=== PATIENT | female | born 1970 | race Caucasian/White ===

== ENCOUNTER 2017-05-01 17:10 | Emergency (ER) | payer MEDICAID ==
[~2017-05-01] VITALS: Ht 165.1 cm; Wt 90.0 kg
[2017-05-01 17:14] VITALS: Ht 165.1 cm; Wt 90.0 kg
[2017-05-01] MEDS ORDERED: LIDOCAINE/MYLANTA 40 ML BTL PO STA (18:26)
[2017-05-01] MEDS ORDERED: OMEP40CA6 PO (19:07)
--- NOTE | 2017-05-01 19:09 | RADRPT ---
PROCEDURE: Chest x-ray CLINICAL INDICATION: Abdominal pain TECHNIQUE: Chest single view COMPARISON: None FINDINGS: The heart is normal in size. The pulmonary vessels are normal in caliber. The lungs are clear. Th e costophrenic angles are sharp. The visualized bony thorax is unremarkable. IMPRESSION: No acute cardiopulmonary disease. RPTAT: HH .Ace Fall MD, MD Date Time Electronically viewed and signed by .Ace Fall MD, on 05/01/2017 19:08 .W/
[2017-05-01 19:11] LABS: BASOPHILS % 0.5 % (0.0-2.0); EOSINOPHILS # 0.1 10^3/ul (0.0-0.5); EOSINOPHILS % 0.6 % (0.0-7.0); HEMATOCRIT 37.4 % (37.0-47.0); HEMOGLOBIN 12.9 g/dl (12.0-16.0); LYMPHOCYTES # 3.3 10^3/ul (0.8-2.9); LYMPHOCYTES % 41.5 % (15.0-51.0); MEAN CORPUSCULAR HEMOGLOBIN 28.8 pg (29.0-33.0); MEAN CORPUSCULAR HGB CONC 34.5 g/dl (32.0-37.0); MEAN CORPUSCULAR VOLUME 83.5 fl (82.0-101.0); MEAN PLATELET VOLUME 10.3 fl (7.4-10.4); MONOCYTE # 0.5 10^3/ul (0.3-0.9); NEUTROPHILS % 50.9 % (39.0-77.0); PLATELET COUNT 326 10^3/UL (140-415); RED BLOOD COUNT 4.48 10^6/ul (4.20-5.40); RED CELL DISTRIBUTION WIDTH 12.5 % (11.5-14.5)
[2017-05-01 19:17] LABS: ANION GAP 20 (8-16); BLOOD UREA NITROGEN 15 mg/dl (7-20); CALCIUM 9.8 mg/dl (8.4-10.2); CARBON DIOXIDE 26 mmol/L (21-31); CHLORIDE 101 mmol/L (97-110); CREATININE 0.78 mg/dl (0.44-1.00); GLUCOSE 110 mg/dl (70-220); SODIUM 143 mmol/L (135-144)
[2017-05-01 19:31] LABS: TROPONIN-I < 0.012 ng/ml (0.00-0.12)
[2017-05-01 20:27] VITALS: BP 139/92; PULSE 74; RESP 18; TEMP 98.1
--- NOTE | 2017-05-01 20:41 | ERD ---
ER Documentation Chief Complaint Date/Time DATE: 05/01/17 TIME: 20:35 Chief Complaint CHEST PAIN RADIATING TO BACK X2 WEEKS HPI 46-year-old female with a history of recurrent breast cancer now in remission on oral chemotherapy presenting to the ER with substernal chest discomfort for the past 2-3 weeks. The pain occasionally radiates to her back. She denies any associated diaphoresis, dizziness, fever, chills, shortness of breath, cough , nausea or vomiting. The discomfort is mild, persistent, not worsened or improved by anything specifically. She has not seen her primary care doctor about this. She denies history of blood clot.Of note, the patient states that 2 years ago after her chemotherapy she had some esophagitis as a side effect. She feels that this may be related. ROS All systems reviewed and are negative except as per history of present illness. Medications Home Meds Active Scripts Omeprazole* (Omeprazole*) 40 Mg Capsule., 40 MG PO DAILY, #15 CAP Prov:JUAN GOLD MD 05/01/17 Allergies Allergies: Coded Allergies: pseudoephedrine (Verified Allergy, Unknown, 04/12/15) Uncoded Allergies: NASAL DECONGESTANTS (Allergy, Unknown, SWELLING OF THE THROAT, 03/08/15) PMhx/Soc History of Surgery: Yes (RIGHT BREAST LUMPECTOMY, LT BREAST LUMPECTOMY ) Anesthesia Reaction: No Hx Neurological Disorder: No Hx Respiratory Disorders: No Hx Cardiac Disorders: Yes (HTN ) Hx Psychiatric Problems: No Hx Miscellaneous Medical Probl: Yes (BREAST CA) Hx Alcohol Use: No Hx Substance Use: No Hx Tobacco Use: No Smoking Status: Never smoker FmHx Family History: No coronary disease, No diabetes Physical Exam Vitals Vital Signs Date Time Temp Pulse Resp B/P Pulse Ox O2 Delivery O2 Flow Rate FiO2 05/01/17 20:27 98.1 74 18 139/92 100 Room Air 05/01/17 17:14 98.1 97 18 172/96 100 Physical Exam Const: Well-appearing, pleasant, nontoxic, no distress Head: Atraumatic Eyes: Normal Conjunctiva ENT: Normal External Ears, Nose and Mouth. Neck: Full range of motion..~ No meningismus.No JVD Resp: Clear to auscultation bilaterally Cardio: Regular rate and rhythm, no murmurs. 2+ distal pulses Abd: Soft, non tender, non distended. Normal bowel sounds Skin: No petechiae or rashes Back: No midline or flank tenderness Ext: No cyanosis, or edema. No calf swelling or tenderness. Negative Homans sign. Neur: Awake and alert Psych: Normal Mood and Affect Result Diagram: 05/01/17175705/01/171757 Results 24 hrs Laboratory Tests Test 05/01/17 17:58 White Blood Count 8.010^3/ul Red Blood Count 4.4810^6/ul Hemoglobin 12.9g/dl Hematocrit 37.4% Mean Corpuscular Volume 83.5fl Mean Corpuscular Hemoglobin 28.8pg Mean Corpuscular Hemoglobin Concent 34.5g/dl Red Cell Distribution Width 12.5% Platelet Count 87574^3/UL Mean Platelet Volume 10.3fl Neutrophils % 50.9% Lymphocytes % 41.5% Monocytes % 6.0% Eosinophils % 0.6% Basophils % 0.5% Nucleated Red Blood Cells % 0.0/100WBC Neutrophils # (Manual) 4.110^3/ul Lymphocytes # 3.310^3/ul Monocytes # 0.510^3/ul Eosinophils # 0.110^3/ul Basophils # 0.010^3/ul Nucleated Red Blood Cells # 0.010^3/ul Sodium Level 143mmol/L Potassium Level 4.0mmol/L Chloride Level 101mmol/L Carbon Dioxide Level 26mmol/L Anion Gap 20 Blood Urea Nitrogen 15mg/dl Creatinine 0.78mg/dl Glucose Level 110mg/dl Calcium Level 9.8mg/dl Troponin I < 0.012ng/ml Current Medications Medications (Trade) Dose Ordered Sig/Nay Route PRN Reason Start Time Stop Time Status Last Admin Dose Admin Miscellaneous Medication (Gi Cocktail (2)) 40 ml ONCE STAT PO 05/01/17 18:26 05/01/17 18:28 DC 05/01/17 18:48 Procedures/MDM EMERGENT LABS AND DIAGNOSTIC STUDIES: Lab Results above were reviewed and interpreted by me. CBC and BMP show no significant abnormalities Troponin within normal limits 12-lead EKG was interpreted by Nery Gold MD: Normal Sinus Rhythm Normal axis Normal intervals No acute ST or T wave changes suggestive of acute ischemia or STEMI. Radiology Results as interpreted by Radiology below were reviewed by Cabrera Gold MD: Chest x-ray shows no significant abnormalities Initial Nursing notes reviewed. Previous Medical Records requested via the Electronic Health Record. EMERGENCY DEPARTMENT COURSE / MEDICAL DECISION MAKING: Patient is presenting with 2 weeks of chest discomfort. Her vitals were unremarkable when she arrived. She has no evidence of respiratory failure. I have a low suspicion for acute coronary syndrome or aortic dissection. I discussed with the patient that she is at higher risk for a pulmonary embolism , however her symptoms are not classic of this diagnosis. Patient has had multiple CT scans of her chest in the past. The risks and benefits of a CTPA were discussed. After shared decision making, the patient decided to forego the CTPA at this time. She would like to follow-up with GI first to rule out esophagitis or other GI etiology. Return precautions were discussed. I feel comfortable discharging the patient home at this time as my suspicion for pulmonary embolism is pretty low and the patient is hemodynamically stable. She was encouraged to return for any worsening symptoms Patient's blood pressure was elevated (>120/80) but appears stable without evidence of hypertensive emergency or urgency. The patient was counseled about the risks of hypertension and urged to pursue outpatient monitoring and therapy within a week with their primary care physician. Departure Diagnosis: Primary Impression: Chest discomfort Condition: Stable Patient Instructions: Chest Pain, Uncertain Cause Additional Instructions: Return to the ER for any worsening symptoms. Make an appointment with a GI doctor for possible endoscopy. Again, we cannot rule out pulmonary embolism without doing a CT scan. So if your symptoms are worsening, return to the ER immediately. JUAN GOLD MD May 01, 2017 20:41
== END 2017-05-01 20:30 | disposition home or self-care (01) ==
LOC: E/R 17:10
DX: R07.89 Other chest pain (principal); I10 Essential (primary) hypertension; C50.919 Malignant neoplasm of unspecified site of unspecified female breast
CPT/HCPCS: 36415; 71010; 80048; 84484; 85025; 93005; Z7502; Z7610

== ENCOUNTER 2018-07-31 23:22 | Emergency (ER) | END 2018-08-01 01:18 | disposition home or self-care (01) ==

== ENCOUNTER 2019-03-22 18:29 | Emergency (ER) | payer MEDICAID ==
[~2019-03-22] VITALS: Ht 160 cm; Wt 84.5 kg
[~2019-03-22 18:29] MED LIST: BEN25 PO; MED4DP PO; OMEP40CA6 PO
[2019-03-22 18:48] VITALS: Ht 160 cm; Wt 84.5 kg
--- NOTE | 2019-03-22 21:08 | ERD ---
ER Documentation Chief Complaint Chief Complaint heavy breathing x 2 days HPI Is a 48-year-old female presents complaining that she feels like she is had difficulty taking a deep breath for the past 2 days. She states that this is h appened before but it is more consistent this time. She states that usually attributed to anxiety. She has no chest pain or palpitations. No fever cough or recent illness. ROS All systems reviewed and are negative except as per history of present illness. Medications Home Meds Active Scripts Diphenhydramine Hcl* (Benadryl*) 25 Mg Cap, 25 MG PO Q6, #30 CAP Prov:BROOKE FARLEY PA-C 08/01/18 Methylprednisolone* (Medrol* DOSE PACK) 4 Mg/Dose-Pack Tab.ds.pk, 4 MG PO . DIRECTED, #1 PACKET Prov:BROOKE FARLEY PA-C 08/01/18 Omeprazole* (Omeprazole*) 40 Mg Capsule.dr, 40 MG PO DAILY, #15 CAP Prov:JUAN HOOKS MD 05/01/17 Allergies Allergies: Coded Allergies: vancomycin (Verified Allergy, Intermediate, 03/22/19) pseudoephedrine (Verified Allergy, Unknown, 04/12/15) Uncoded Allergies: NASAL DECONGESTANTS (Allergy, Unknown, SWELLING OF THE THROAT, 03/08/15) PMhx/Soc History of Surgery: Yes (RIGHT BREAST LUMPECTOMY, LT BREAST LUMPECTOMY, HYSTERECTOMY ) Anesthesia Reaction: No Hx Neurological Disorder: No Hx Respiratory Disorders: No Hx Cardiac Disorders: Yes (HTN ) Hx Psychiatric Problems: No Hx Miscellaneous Medical Probl: Yes (BREAST CA) Hx Alcohol Use: No Hx Substance Use: No Hx Tobacco Use: No Smoking Status: Never smoker FmHx Family History: No diabetes Physical Exam Vitals Vital Signs Date Temp Pulse Resp B/P (MAP) Pulse Ox O2 O2 Flow FiO2 Time Delivery Rate 03/22/19 97.6 82 20 154/90 99 18:48 (111) Physical Exam INITIAL VITAL SIGNS: Reviewed by me GENERAL: Awake, alert and oriented x 4, well appearing, nontoxic, speaking in fu ll sentences. No acute distress HEAD: Atraumatic NECK: Supple. No masses. Full range of motion. No meningismus. No midline tenderness. RESPIRATORY: Clear to auscultation bilaterally. Symmetric chest wall rise. No wheezing or rales. No accessory muscle use. CV: Regular rate and rhythm. No murmurs, rubs, or gallops. Result Diagram: 03/22/19193403/22/191934 Results 24 hrs Laboratory Tests Test 03/22/19 19:35 White Blood Count 9.1 10^3/ul Red Blood Count 4.48 10^6/ul Hemoglobin 12.5 g/dl Hematocrit 38.0 % Mean Corpuscular Volume 84.8 fl Mean Corpuscular Hemoglobin 27.9 pg Mean Corpuscular Hemoglobin Concent 32.9 g/dl Red Cell Distribution Width 12.4 % Platelet Count 319 10^3/UL Mean Platelet Volume 10.2 fl Immature Granulocytes % 0.300 % Neutrophils % 48.3 % Lymphocytes % 43.9 % Monocytes % 5.9 % Eosinophils % 0.9 % Basophils % 0.7 % Nucleated Red Blood Cells % 0.0 /100WBC Immature Granulocytes # 0.030 10^3/ul Neutrophils # 4.4 10^3/ul Lymphocytes # 4.0 10^3/ul Monocytes # 0.5 10^3/ul Eosinophils # 0.1 10^3/ul Basophils # 0.1 10^3/ul Nucleated Red Blood Cells # 0.0 10^3/ul Sodium Level 141 mmol/L Potassium Level 4.3 mmol/L Chloride Level 105 mmol/L Carbon Dioxide Level 26 mmol/L Anion Gap 10 Blood Urea Nitrogen 16 mg/dl Creatinine 0.62 mg/dl Est Glomerular Filtrat Rate mL/min > 60 mL/min Glucose Level 99 mg/dl Calcium Level 10.3 mg/dl Troponin I < 0.012 ng/ml Procedures/MDM The differential diagnosis includes but is not limited to asthma, COPD, pneumonia, pulmonary embolus, pleural effusion, congestive heart failure, and others. EKG is normal no evidence of ST elevation or acute ischemic changes. Labs including troponin are negative. She has no cardiac past medical history and given this is been going on for 2 days and she has had similar symptoms in the past I feel comfortable sending her home. She was given copies of all of her labs so she can follow-up with her primary care. Patient counseled regarding my diagnostic impression and care plan. Prior to discharge all questions answered. Pt agrees with treatment plan and understands strict return precautions. Pt is instructed to follow up with primary care provider within 24- 48 hours. Precautionary instructions provided including instructions to return to the ER if not improving or for any worsening or changing symptoms or c oncerns. Departure Diagnosis: Primary Impression: Shortness of breath Condition: Stable Patient Instructions: Coping with Shortness of Breath: Controlling Stress Additional Instructions: Call your primary care doctor TOMORROW for an appointment during the next 1-2 days.See the doctor sooner or return here if your condition worsens before your appointment time. CLAU AMARAL PA-C Mar 22, 2019 21:08
[2019-03-22 21:26] VITALS: BP 148/81; PULSE 57; RESP 17
== END 2019-03-22 21:26 | disposition home or self-care (01) ==
LOC: FTE 18:29
DX: R06.02 Shortness of breath (principal); I10 Essential (primary) hypertension; Z85.3 Personal history of malignant neoplasm of breast
CPT/HCPCS: 36415; 71045; 80048; 84484; 85025; Z7502

== ENCOUNTER 2019-04-20 16:20 | Emergency (ER) | payer MEDICAID ==
[~2019-04-20] VITALS: Ht 162.6 cm; Wt 85.1 kg
[~2019-04-20 16:20] MED LIST changes: +MAG355OR15 PO; +ONDA4TAB14 PO
--- OUTSIDE RECORDS SUMMARY | 2019-04-20 16:23 | XMS REPORT | Encounter Summary ---
Demographics -[id number] Affiliation lan Author ress Care Team Providers counter Details Gwafjbl2Ug re escriptionVerd DdhnCeieoqs0m ana4d Rita aguilar, JOSÉ MIGUEL [address] [place] [address] [phone] BLOCKLAYER ry Hfycnaf8Ml cks/Day 0 Bd Hxevqxo8Ib Travel CobLnqvsoj3d ncounter Plan of Treatment Voavguc0Qd are escriptionVerd IqvjOojvbcu9u ana4d Gildardo fitch MD [address] [place] [phone] [phone] Surgery Arelis Orantes MD [address] [facility] [place] [address] Diagnoses Not on filedocumented in this encounter
--- OUTSIDE RECORDS SUMMARY | 2019-04-20 16:23 | XMS REPORT | Clinical Summary ---
Demographics -[id number] Affiliation lan Author ress Care Team Providers lergies Ppvilca9Bg actions ne ad and anxiety Verdana4 Verdana Bd na4d a4d nits capsule TAKE 1 tablet (FEMARA) 2.5 MG y from request for surgery [id number] a) teric states with abnormal finding f right breast in female, , IA: Positive, HER2: Negative) - Signed by brynn Evans 09/13/2018 Encounters Qnetmdq7UxMD Serafin Edwards, Iris, RN ry Dx); Malignant neoplasm of upper-outer quadrant of left breast in female, estrogen receptor positive (CMS/HCC); Age-related osteoporosis with current pathological fracture with delayed healing, subsequent encounter 03/11/2019 Hospital Infusion Therapy Encounter Arelis Leon MD Barragan, 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, 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 Malignant neoplasm of central portion of right breast in female, estrogen receptor positive (CMS/HCC); Malignant neoplasm of upper-outer quadrant of left breast in female, estrogen receptor positive (CMS/HCC) 03/11/2019 Office Visit Oncology Aiyana Greene NP Med Refill 03/02/2019 Refill Oncology Sunny Jefferson MD Nontoxic uninodular goiter (Primary Dx); Osteoporosis, unspecified osteoporosis type, unspecified pathological fracture presence; Pre-diabetes 02/26/2019 Office Visit Endocrinology 02/26/2019 Travel from Last 3 Months Family History Kojmdeb8Fd cks/Day 0 Bd Tchceov3Kr Travel LzkIsbavvk4w l Signs Jifcfky6Ot dana4d zuccUfcagsa2r PM PDT PM PDT M PDT PM PDT PM PDT n oz) PM PDT AM PST AM PST Vlwisuw6On are escriptionVerd XamnMxzggtg9s ana4d Gildardo fitch MD [address] [place] [phone] Surgery Arelis Orantes MD [address] [place] [address] [address] [phone] Qnnyzmp8Bu mmentsVerdana4 d procedure are in the results section. neoplasm of portion of right positive (CMS/HCC) procedure are in the results section. neoplasm of portion of right positive (CMS/HCC) procedure are in the results section. neoplasm of portion of right positive (CMS/HCC) procedure are in the results section. IAL WITH neoplasm of portion of right positive (CMS/HCC) from Last 3 Months Results * Automated Differential (03/11/2019 1:24 PM PDT) OGY OGY OGY OGY OGY - 3.1 K/uL B AB AB OGY rganization -2188 [address] Performed At [facility] LOG[facility] LOGY RH PATHOLOGY RH PATHOLOGY LOGY LOGY LOGY LOGY LOGY rganization -218 [address]istina nature OGY [facility] Level, g/dL PATHOLOGY [facility] Level, mg/dL PATHOLOGY [facility] mg/dL PATHOLOGY RH PATHOLOGY PATHOLOGY PATHOLOGY mmol/L PATHOLOGY [facility] mmol/L PATHOLOGY [facility] Dioxide mmol/L PATHOLOGY PATHOLOGY mg/dL PATHOLOGY the MDRD study f age, women, ions, or persons with utritional status. M mL/min/1.73 sq PATHOLOGY the MDRD study f age, women, ions, or persons with utritional status. M Gap, [facility] PATHOLOGY [facility] PATHOLOGY rganization -218 [address] Verdana 4Bd 4d iber Effective ID [id number] 08/04/2017- [phone] [phone] [id number] Address Malika pope [facility] [id number]
--- OUTSIDE RECORDS SUMMARY | 2019-04-20 16:23 | XMS REPORT | Encounter Summary ---
Demographics -[id number] Affiliation lan Author ress Care Team Providers counter Details Edawawi0Pi te Social History Zwgbupt1Ki cks/Day 0 Bd Ivyhsgh1Lr Travel YpgCrhzpto3p ncounter Plan of Treatment Bmffajf2Dq are escriptionVerd AurdSdjpjjr2r ana4d Gildardo fitch MD [address] [place] [phone] Surgery Arelis Orantes MD [address] [place] [phone] Diagnoses Not on filedocumented in this encounter
--- OUTSIDE RECORDS SUMMARY | 2019-04-20 16:23 | XMS REPORT | Encounter Summary ---
Demographics -[id number] Affiliation lan Author ress Care Team Providers ason for Visit * Exccozr2Qa re scriptionVerdan DwljEtuqzfw1n a4d [address] PARAPROFESSIONAL/PA/RN [place] [address] [phone] Social History Imwnwdg3Pe cks/Day 0 Bd Hppnqnn7Ds Travel MukZgcntda7w ncounter Plan of Treatment Rfstsym0Uf are escriptionVerd JksnNyuqrgr0a ana4d Gildardo fitch MD [address] [place] [address] [phone] Surgery Arelis Orantes MD [address] [place] [address] [phone] Diagnoses Not on filedocumented in this encounter
--- OUTSIDE RECORDS SUMMARY | 2019-04-20 16:23 | XMS REPORT | Encounter Summary ---
Demographics -[phone] Affiliation lan Author ress Care Team Providers ason for Visit * Nlejuxc4Fk re scriptionVerdan DmgzOuvxdpi7o a4d [address] [facility] [address] [place] [address] 1055 Social History Hzfotak5Qz cks/Day 0 Bd Ollrhxh9Am Travel OecCdprjww5x ncounter Plan of Treatment Efjuksu6Jq are escriptionVerd PmupVvhndoa7s ana4d Gildardo fitch MD [address] [place] [phone] [phone] Surgery Arelis Orantes MD [address] [place] [address] Diagnoses Not on filedocumented in this encounter
--- OUTSIDE RECORDS SUMMARY | 2019-04-20 16:23 | XMS REPORT | Encounter Summary ---
Demographics -[phone] Affiliation lan Author ress Care Team Providers ason for Referral * Follow Up (Routine) Axtaubj3Xr Referred By Referred To Jaime ContactVermelina a4d a4d MD Becky [address] [place] [address] Road Div of Neurology [facility] [place] [address] s dxlxox2Iq are escriptionVerd YnkbTzkukcs8z ana4d Pippa casiano areola in [address] Div of breasts in Neurology [place] female, te, [place] estrogen [phone] (Fax) ([facility]) (Primary Dx); Abnormal involuntary movement tory Nauircl0Ew cks/Day 0 Bd Imnuskg4Lr Travel TvjGcznxvu2z ncounter Last Filed Vital Signs Uftmpwr0By dana4d lvqlBssssej3s AM PST AM PST M PST AM PST AM PST n 10.8 oz) AM PST AM PST AM PST CSN: [id number] Age: 47 y.o. (1970) Patient Name: Kyle Posey Gender: female Encounter Department: [facility] [address] [place] [phone] Progress Note Reason for Visit Involuntary movements History of Present Illness Kyle Posey is a 47 y.o. female with history of bilateral breast cancer, st age IA, ER/IA positive, on adjuvant letrozole since 2014. She was seen for eval uation of involuntaryl head twitches. Head movements are side-to side, lasts sec onds and are triggered by certain physical actions that usually require some eff ort or concentration. They never occur at rest. Her maternal great aunt had esse ntial tremor involving only her head. There is no family history of any other mo vement disorders. Patient relates today, her mother noticed them since her chil dhood. My impression was essential type tremor as opposed to tick disorder. Sin ce symptoms were mild, no treatments were recommended . She had a normal miller MRI in an outside facility. INTERVAL HISTORY: There is no symptom progression and no development of new symptoms . She continu es to do well. Diagnosis and Problem List Diagnosis/Cancer Stagin. Abnormal involuntary movement Patient Active Problem List Diagnosis Malignant neoplasm of central portion of right breast in female, estrogen re ceptor positive (CMS/HCC) Malignant neoplasm of upper-outer quadrant of left breast in female, estroge n receptor positive (CMS/HCC) Symptomatic menopausal or female climacteric states Vaginal atrophy Encounter for gynecological examination with abnormal finding Lower abdominal pain BRBPR (bright red blood per rectum) Bilateral groin pain Use of letrozole (Femara) Osteoporosis Pre-diabetes Hypovitaminosis D Proctocele Stress incontinence in female Nontoxic uninodular goiter Lymphedema of upper extremity Use of letrozole (Femara) Medical History Past Medical History: Past Medical History: Diagnosis Date Cancer (CMS/HCC) Costochondritis Endometrioma Endometriosis Hypovitaminosis D Multinodular goiter (nontoxic) Osteopenia Past Surgical History: Past Surgical History: Procedure Laterality Date BREAST LUMPECTOMY Left 2011 BREAST LUMPECTOMY Right 2014 ESOPHAGOGASTRODUODENOSCOPY IA COLONOSCOPY FLX DX W/COLLJ SPEC WHEN PFRMD N/A 01/15/2018 Procedure: COLONOSCOPY; Surgeon: Imani Sears MD; Location: [facility] OR; Servi ce: Gastroenterology TOTAL ABDOMINAL HYSTERECTOMY W/ BILATERAL SALPINGOOPHORECTOMY Family History: Family History Problem Relation Age of Onset No Known Problems Mother No Known Problems Father Social History: Social History Social History Marital status: Spouse name: N/A Number of children: N/A Years of education: N/A Occupational History Not on file. Social History Main Topics Smoking status: Never Smoker Smokeless tobacco: Never Used Alcohol use No Drug use: No Sexual activity: Yes Partners: Male Other Topics Concern Not on file Social History Narrative No narrative on file Medications Current Medications: Current Outpatient Prescriptions: Cholecalciferol (D3-1000) 1000 units capsule, Take 2,000 Units by mouth jo ann ly. , Disp: , Rfl: letrozole (FEMARA) 2.5 MG tablet, Take 1 tablet (2.5 mg total) by mouth jo ann ly. Take with or without food., Disp: 90 tablet, Rfl: 3 omeprazole (PriLOSEC) DR capsule, Take 1 capsule (20 mg total) by mouth gilmer morning. DO NOT CRUSH OR CHEW., Disp: 30 capsule, Rfl: 11 Allergies/Intolerances Docetaxel; Sudafed [pseudoephedrine]; and Vancomycin Review of Systems Review of Systems Pertinent positives as above. The reminder of neurologic 12-point review of systems is negative. Physical Exam Vitals: Vitals: 09/07/18 0931 BP: 134/88 Pulse: 85 Resp: 18 Temp: 37.1 C (98.8 F) TempSrc: Oral SpO2: 96% Weight: 94.2 kg (207 lb 10.8 oz) Physical Exam General: Well developed woman without distress. HEENT: Normocephalic, anicteric sclera, mucous membranes are moist. Neck: Supple without bruits. Chest: Normal respirations without effort Cardiovascular: Regular rate and rhythm Extremities: Well perfused without discoloration or edema. NEUROLOGIC EXAM: Mental status: Alert and oriented x4. There is no dysnomia or dyspraxia. Speech is fluent and comprehension is intact. Mood is euthymic. CN II-XII : Pupils are about 3 mm, round and reactive to light. Extraocular move ments are conjugate. Visual jha are full to confrontation. Face is symmetric, hearing is intact to casual conversation, tongue and uvula are in midline, ther e is no dysarthria and no weakness of shoulder shrug. Motor: Full strength throughout with normal tone and bulk. DTR: 2/4 throughout without pathologic reflexes Coordination: no dysmetria, no abnormal movements are observed, there is no rest ing or action type hand tremor. I was able to elicit and observe head oscilati on during exam. Sensory exam: Intact with exception of mild gradient vibratory loss Gait: Negative Romberg, normal narrow based gait, normal tandem gait Laboratory Results Review: I reviewed pertinent labs. Serum workup is negative including DENNISE, RF, Copper, Ceruloplasmin. She doesn't h ave thyroid dysfunction. Medical Imaging Review I have reviewed all pertinent imaging results. Brain MRI was reportedly normal. Assessment and Plan This is a 47-year-old woman with stage I bilateral breast cancer and family hist ory of essential tremor, who presents for evaluation of involuntary head oscillations. They are of action type and are triggered by certain motions/ phy sical activities requiring effort/concentration. I was able to elicit and observ e one during exam. This is a form fruste of essential tremor involving head. It may slowly progres s over time. It is doesn't represent myoclonic jerks, tic disorder or dystonic tremor. Plan: 1. No treatment is indicated at this stage 2. Limitation of caffeine 3. Thyroid function Is normal along with other pertinent blood workup 4. Follow up as needed. 5. In case of progression, propranolol would be the agent of choice. 6. She is under care of [facility] for breast cancer, which remians in remission Electronic Signature: Becky Powers MD 09/07/2018 9:23 PM Over 25 minutes were spent in this encounter with more than 50% of time devoted to counseling, answering multiple questions and coordinating care. documented in this encounter Plan of Treatment Fnbosqb8Oo are escriptionVerd TsxjNfloztn8x ana4d Gildardo fitch MD [address] [place] [phone] Surgery Arelis Orantes MD [address] [facility] [place] [address] [phone] Diagnoses CC) -
--- OUTSIDE RECORDS SUMMARY | 2019-04-20 16:23 | XMS REPORT | Encounter Summary ---
Demographics -[id number] Affiliation lan Author ress Care Team Providers counter Details [id number] re scriptionVerdan [id number] a4d Aure HAND PATCHER Xvckirp7Hm cks/Day 0 Bd Lhsmojr0By Travel HojVxaplqo3p ncounter Plan of Treatment Epgiyan0Op are escriptionVerd [id number] ana4d Gildardo fitch MD [address] [place] [address] [id number] Surgery Arelis Orantes MD [address] [place] [address] [address] [phone] Diagnoses Not on filedocumented in this encounter
[2019-04-20 16:25] VITALS: BP 147/67; PULSE 91; RESP 18; Ht 162.6 cm; Wt 85.1 kg
--- NOTE | 2019-04-20 17:44 | ERD ---
ER Documentation Chief Complaint Chief Complaint c/o nausea, lack of appetite, abdominal cramps and dark urine x1 day HPI This is a 48-year-old female patient presents emergency room with complaint of 2 days of increasing episodes of nausea, abdominal bloating, and dark urine. Patient also states she has been having chills however has not measured a temperature. Denies dysuria, denies hematuria, + left-sided CVT. BM today hunter ent states was "normal" denies melena or hematochezia. Intermittent nausea, no vomiting. Patient states she was on Cipro 2 weeks ago for UTI and also had transfusion of Zometa to prevent osteoporosis 2 weeks ago. Patient has history of breast cancer, last chemo 2014. ROS All systems reviewed and are negative except as per history of present illness. Medications Home Meds Active Scripts Mag Hydrox/Al Hydrox/Simeth (Maalox Plus X-Strength Susp) 355 Ml Oral.susp, 10 ML PO BID PRN for INTESTINAL SPASMS/CRAMPING for 5 Days, #1 BOTTLE Prov:TERESA RYAN NP 04/20/19 Ondansetron (Ondansetron Odt) 4 Mg Tab.rapdis, 4 MG PO Q6H PRN for NAUSEA AND/OR VOMITING, #10 TAB Prov:TERESA RYAN NP 04/20/19 Diphenhydramine Hcl* (Benadryl*) 25 Mg Cap, 25 MG PO Q6, #30 CAP Prov:BROOKE FARLEY PA-C 08/01/18 Methylprednisolone* (Medrol* DOSE PACK) 4 Mg/Dose-Pack Tab.ds.pk, 4 MG PO . DIRECTED, #1 PACKET Prov:BROOKE FARLEY PA-C 08/01/18 Omeprazole* (Omeprazole*) 40 Mg Capsule.dr, 40 MG PO DAILY, #15 CAP Prov:JUAN HOOKS MD 05/01/17 Allergies Allergies: Coded Allergies: vancomycin (Verified Allergy, Intermediate, 03/22/19) pseudoephedrine (Verified Allergy, Unknown, 04/12/15) Uncoded Allergies: NASAL DECONGESTANTS (Allergy, Unknown, SWELLING OF THE THROAT, 03/08/15) PMhx/Soc History of Surgery: Yes (RIGHT BREAST LUMPECTOMY, LT BREAST LUMPECTOMY, HYSTERECTOMY ) Anesthesia Reaction: No Hx Neurological Disorder: No Hx Respiratory Disorders: No Hx Cardiac Disorders: Yes (HTN ) Hx Psychiatric Problems: No Hx Miscellaneous Medical Probl: Yes (BREAST CA) Hx Alcohol Use: No Hx Substance Use: No Hx Tobacco Use: No Smoking Status: Never smoker FmHx Family History: No diabetes, No coronary disease, No other Physical Exam Vitals Vital Signs Date Temp Pulse Resp B/P (MAP) Pulse Ox O2 O2 Flow FiO2 Time Delivery Rate 04/20/19 99.2 91 18 147/67 98 16:25 (93) Physical Exam Const: No acute distress Head: Atraumatic Eyes: Normal Conjunctiva, PERRL ENT: Normal External Ears, Nose and Mouth. Pharynx pink, moist, no lesions or exudate Neck: Full range of motion. No meningismus. No lymphadenopathy Resp: Clear to auscultation bilaterally, no wheezing, no Rales Cardio: Regular rate and rhythm, no murmurs Abd: Soft, non distended. +epigastric tenderness, +left flank tenderness. Normal bowel sounds Skin: No petechiae or rashes, pink, warm, dry Back: No midline tenderness, no bruising, no spinal tenderness Ext: No cyanosis, or edema Neur: Awake and alert, CN II-XII intact, Clear speech, steady gait Psych: Normal Mood and Affect Result Diagram: 04/20/19175104/20/191751 Results 24 hrs Laboratory Tests Test 04/20/19 17:45 04/20/19 17:52 04/20/19 17:53 Urine Color YELLOW Urine Clarity CLEAR Urine pH 7.0 Urine Specific [place] 1.013 Urine Ketones NEGATIVE mg/dL Urine Nitrite NEGATIVE mg/dL Urine Bilirubin NEGATIVE mg/dL Urine Urobilinogen 2+ mg/dL Urine Leukocyte Esterase NEGATIVE Bon/ul Urine Microscopic RBC 1 /HPF Urine Microscopic WBC 1 /HPF Urine Hemoglobin 1+ mg/dL Urine Glucose NEGATIVE mg/dL Urine Total Protein NEGATIVE mg/dl White Blood Count 5.2 10^3/ul Red Blood Count 4.59 10^6/ul Hemoglobin 12.8 g/dl Hematocrit 39.6 % Mean Corpuscular Volume 86.3 fl Mean Corpuscular Hemoglobin 27.9 pg Mean Corpuscular 32.3 g/dl Hemoglobin Concent Red Cell Distribution Width 13.3 % Platelet Count 260 10^3/UL Mean Platelet Volume 10.3 fl Immature Granulocytes % 0.200 % Neutrophils % 52.5 % Lymphocytes % 36.9 % Monocytes % 9.8 % Eosinophils % 0.4 % Basophils % 0.2 % Nucleated Red Blood Cells % 0.0 /100WBC Immature Granulocytes # 0.010 10^3/ul Neutrophils # 2.8 10^3/ul Lymphocytes # 1.9 10^3/ul Monocytes # 0.5 10^3/ul Eosinophils # 0.0 10^3/ul Basophils # 0.0 10^3/ul Nucleated Red Blood Cells # 0.0 10^3/ul Sodium Level 140 mmol/L Potassium Level 4.2 mmol/L Chloride Level 106 mmol/L Carbon Dioxide Level 23 mmol/L Anion Gap 11 Blood Urea Nitrogen 12 mg/dl Creatinine 0.67 mg/dl Est Glomerular Filtrat > 60 mL/min Rate mL/min Glucose Level 110 mg/dl Calcium Level 8.5 mg/dl Total Bilirubin 0.4 mg/dl Direct Bilirubin 0.00 mg/dl Indirect Bilirubin 0.4 mg/dl Aspartate Amino 48 IU/L Transf (AST/SGOT) Alanine 44 IU/L Aminotransferase (ALT/SGPT) Alkaline Phosphatase 66 IU/L Total Protein 7.9 g/dl Albumin 4.4 g/dl Globulin 3.50 g/dl Albumin/Globulin Ratio 1.25 POC Beta HCG, Qualitative NEGATIVE Procedures/MDM PROCEDURES/MDM EKG: Rate/Rhythm: 75 bpm, Normal Sinus Rhythm QRS, ST, T-waves: No changes consistent w/ acute ischemia Impression: No evidence of ischemia or arrhythmia Read by attending physician: Heena LAB INTERPRETATION: No leukocytosis, no anemia normal kidney function, no electrolyte disturbance, no pronounced transaminitis Urine; negative beta hCG, negative nitrites, negative leukocytes esterase, +1 RBC and WBC. -Medications: Patient declining medications during ED course, patient states she would rather have prescription and attempt to treat herself at home. MDM: Is a 48-year-old female patient presents emergency room with complaint of nausea and dark urine. Patient states she has recently had transfusion of Zometa for osteoporosis as well as treatment for UTI with ciprofloxacin. Patient states that she feels bloated and nauseated however declines Zofran or GI cocktail at this time. The patient is clinically well appearing and stable. Symptoms are not suggestive of cardiac ischemia, pulmonary embolus, aortic dissection, or other serious etiology. There is no evidence for cardiac ischemia on EKG, urinalysis is negative for UTI or pyelonephritis, lab tests do not indicate occult infection, sepsis, acute renal failure, transaminitis to indicate liver dysfunction or cholecystitis. Patient has been prescribed Zofran and Maalox and provided with results of today's laboratory work-up. Patient has been given strict instructions to follow-up with her primary care provider or return to this emergency room with any worsening or changing of her symptoms. DISPOSITION and PLAN: RX: Maalox, Zofran The patient has been discharge home to follow-up with community physician. Departure Diagnosis: Primary Impression: Dyspepsia Additional Impression: Nausea Condition: Stable TERESA RYAN NP Apr 20, 2019 17:43
== END 2019-04-20 20:15 | disposition home or self-care (01) ==
LOC: FTE 16:20
DX: R10.13 Epigastric pain (principal); I10 Essential (primary) hypertension; Z85.3 Personal history of malignant neoplasm of breast
CPT/HCPCS: 80053; 81001; 81025; 85025; Z7502; 93005

== ENCOUNTER 2019-05-01 20:29 | Emergency (ER) | payer MEDICAID ==
[~2019-05-01] VITALS: Ht 160 cm; Wt 84.7 kg
[~2019-05-01 20:29] MED LIST changes: +DIPH25TA68 PO; +LORA-441 PO; +MECL12.574 PO
[2019-05-01 20:35] VITALS: Ht 160 cm; Wt 84.7 kg
[2019-05-01] MEDS ORDERED: LORAZEPAM 1 MG TAB PO ONE (21:30)
[2019-05-01 22:25] VITALS: BP 143/74; PULSE 59; RESP 17
== END 2019-05-01 22:25 | disposition home or self-care (01) ==
LOC: FTE 20:29
DX: F41.9 Anxiety disorder, unspecified (principal); F41.0 Panic disorder [episodic paroxysmal anxiety]; I10 Essential (primary) hypertension; Z85.3 Personal history of malignant neoplasm of breast
CPT/HCPCS: 81003; 81025; Z7502; Z7610; 99283